=== PATIENT | female | born 1980 | race Hispanic/Latino ===

== ENCOUNTER 2019-06-20 09:14 | Day surgery (SDC) | payer OTHER ==
[~2019-06-20 09:14] MED LIST: CYCLOPHOSPHAMIDE IVPB SCH; DOXORUBICIN IVPB SCH; Palonosetron HCl 0.25 MG in Sodium Chloride 0.9% 50 ML IVPB SCH; SODIUM CHLORIDE 0.9% IVPB SCH
[2019-06-20] MEDS ORDERED: Sodium Chloride 0.9% 20 ML ONE ×2 (09:21→09:24)
[2019-06-20 10:14] VITALS: BP 156/74; TEMP 98.8
== END 2019-06-20 13:19 | disposition home or self-care (01) ==
LOC: ONC/OP 09:14
PROVIDERS: ATTEND Internal Medicine Hematology & Oncology
DX: Z51.11 Encounter for antineoplastic chemotherapy (principal); C50.411 Malignant neoplasm of upper-outer quadrant of right female breast
CPT/HCPCS: 96375; 96413; 96417; J1100; J1642; J2469; J3490; J7050; J9000; J9070

== ENCOUNTER 2019-06-21 13:45 | Day surgery (SDC) | payer OTHER ==
[~2019-06-21 13:45] MED LIST changes: -CYCLOPHOSPHAMIDE IVPB SCH; -DOXORUBICIN IVPB SCH; +PEGFILGRASTIM-JMDB 6 MG/0.6 ML SYRINGE SQ SCH; -Palonosetron HCl 0.25 MG in Sodium Chloride 0.9% 50 ML IVPB SCH; -SODIUM CHLORIDE 0.9% IVPB SCH
[2019-06-21 14:43] VITALS: BP 152/72; TEMP 98.5
== END 2019-06-21 14:43 | disposition home or self-care (01) ==
LOC: ONC/OP 13:45
PROVIDERS: ATTEND Internal Medicine Hematology & Oncology
DX: C50.411 Malignant neoplasm of upper-outer quadrant of right female breast (principal)
CPT/HCPCS: 96372; Q5108

== ENCOUNTER 2019-07-04 09:05 | Day surgery (SDC) | payer OTHER ==
[~2019-07-04 09:05] MED LIST changes: +CYCLOPHOSPHAMIDE IVPB SCH; +DOXORUBICIN IVPB SCH; -PEGFILGRASTIM-JMDB 6 MG/0.6 ML SYRINGE SQ SCH; +Palonosetron HCl 0.25 MG in Sodium Chloride 0.9% 50 ML IVPB SCH; +Pegfilgrastim Onpro 6 MG/0.6 ML SQ SCH; +SODIUM CHLORIDE 0.9% IVPB SCH
[2019-07-04] MEDS ORDERED: Sodium Chloride 0.9% 20 ML ONE (09:12)
[2019-07-04 12:43] VITALS: BP 147/72; TEMP 98.2
== END 2019-07-04 12:44 | disposition home or self-care (01) ==
LOC: ONC/OP 09:05
PROVIDERS: ATTEND Internal Medicine Hematology & Oncology
DX: Z51.11 Encounter for antineoplastic chemotherapy (principal); C50.411 Malignant neoplasm of upper-outer quadrant of right female breast
CPT/HCPCS: 96367; 96413; 96417; J1100; J1642; J2469; J3490; J7050; J9000; J9070

== ENCOUNTER 2019-07-05 08:26 | Day surgery (SDC) | payer OTHER ==
[2019-07-05] MEDS ORDERED: PEGFILGRASTIM-JMDB 6 MG/0.6 ML SYRINGE ONE (08:28)
[2019-07-05 08:43] VITALS: BP 143/67; TEMP 98.2
== END 2019-07-05 08:50 | disposition home or self-care (01) ==
LOC: ONC/OP 08:26
PROVIDERS: ATTEND Internal Medicine Hematology & Oncology
DX: C50.411 Malignant neoplasm of upper-outer quadrant of right female breast (principal)
CPT/HCPCS: 96372; Q5108

== ENCOUNTER 2019-07-18 10:10 | Day surgery (SDC) | payer OTHER ==
[~2019-07-18 10:10] MED LIST changes: -Pegfilgrastim Onpro 6 MG/0.6 ML SQ SCH
[2019-07-18] MEDS ORDERED: Sodium Chloride 0.9% 20 ML ONE (10:24)
[2019-07-18 10:33] VITALS: BP 133/69; TEMP 98.6
[2019-07-18] MEDS ORDERED: Acetaminophen 500 MG TAB PO SCH (15:45)
== END 2019-07-18 16:19 | disposition home or self-care (01) ==
LOC: ONC/OP 10:10
PROVIDERS: ATTEND Internal Medicine Hematology & Oncology
DX: Z51.11 Encounter for antineoplastic chemotherapy (principal); C50.411 Malignant neoplasm of upper-outer quadrant of right female breast
CPT/HCPCS: 96375; 96413; 96417; J1100; J1642; J2469; J3490; J7050; J9000; J9070

== ENCOUNTER 2019-07-19 08:17 | Day surgery (SDC) | payer OTHER ==
[~2019-07-19 08:17] MED LIST changes: -CYCLOPHOSPHAMIDE IVPB SCH; -DOXORUBICIN IVPB SCH; +PEGFILGRASTIM-JMDB 6 MG/0.6 ML SYRINGE SQ SCH; -Palonosetron HCl 0.25 MG in Sodium Chloride 0.9% 50 ML IVPB SCH; -SODIUM CHLORIDE 0.9% IVPB SCH
[2019-07-19 09:01] VITALS: BP 124/68; TEMP 98
== END 2019-07-19 09:43 | disposition home or self-care (01) ==
LOC: ONC/OP 08:17
PROVIDERS: ATTEND Internal Medicine Hematology & Oncology
DX: C50.411 Malignant neoplasm of upper-outer quadrant of right female breast (principal)
CPT/HCPCS: 96372; Q5108

== ENCOUNTER 2019-08-01 09:55 | Day surgery (SDC) | payer OTHER ==
[~2019-08-01 09:55] MED LIST changes: +CYCLOPHOSPHAMIDE IVPB SCH; +DOXORUBICIN IVPB SCH; -PEGFILGRASTIM-JMDB 6 MG/0.6 ML SYRINGE SQ SCH; +Palonosetron HCl 0.25 MG in Sodium Chloride 0.9% 50 ML IVPB SCH; +SODIUM CHLORIDE 0.9% IVPB SCH
[2019-08-01 10:04] VITALS: BP 145/70; TEMP 98.4
[2019-08-01] MEDS ORDERED: Sodium Chloride 0.9% 20 ML ONE (10:32)
== END 2019-08-01 12:19 | disposition home or self-care (01) ==
LOC: ONC/OP 09:55
PROVIDERS: ATTEND Internal Medicine Hematology & Oncology
DX: Z51.11 Encounter for antineoplastic chemotherapy (principal); C50.411 Malignant neoplasm of upper-outer quadrant of right female breast
CPT/HCPCS: 96375; 96413; 96417; J1100; J1642; J2469; J3490; J7050; J9000; J9070

== ENCOUNTER 2019-08-02 08:13 | Day surgery (SDC) | payer OTHER ==
[~2019-08-02 08:13] MED LIST changes: -CYCLOPHOSPHAMIDE IVPB SCH; -DOXORUBICIN IVPB SCH; +PEGFILGRASTIM-JMDB 6 MG/0.6 ML SYRINGE SQ SCH; -Palonosetron HCl 0.25 MG in Sodium Chloride 0.9% 50 ML IVPB SCH; -SODIUM CHLORIDE 0.9% IVPB SCH
[2019-08-02 08:38] VITALS: BP 149/63; TEMP 98.1
== END 2019-08-02 08:38 | disposition home or self-care (01) ==
LOC: ONC/OP 08:13
PROVIDERS: ATTEND Internal Medicine Hematology & Oncology
DX: C50.411 Malignant neoplasm of upper-outer quadrant of right female breast (principal)
CPT/HCPCS: 96372; Q5108

== ENCOUNTER 2019-08-15 09:13 | Day surgery (SDC) | payer OTHER ==
[~2019-08-15 09:13] MED LIST changes: +PACLITAXEL IVPB SCH; -PEGFILGRASTIM-JMDB 6 MG/0.6 ML SYRINGE SQ SCH; +SODIUM CHLORIDE 0.9% IVPB SCH
[2019-08-15] MEDS ORDERED: Sodium Chloride 0.9% 20 ML ONE (09:22)
[2019-08-15 11:22] VITALS: BP 140/72; TEMP 98.4
== END 2019-08-15 15:17 | disposition home or self-care (01) ==
LOC: ONC/OP 09:13
PROVIDERS: ATTEND Internal Medicine Hematology & Oncology
DX: Z51.11 Encounter for antineoplastic chemotherapy (principal); C50.411 Malignant neoplasm of upper-outer quadrant of right female breast
CPT/HCPCS: 96375; 96413; J1100; J1642; J7050; J9267

== ENCOUNTER 2019-08-22 10:59 | Day surgery (SDC) | payer OTHER ==
[2019-08-22] MEDS ORDERED: Sodium Chloride 0.9% 20 ML ONE (11:01)
[2019-08-22 11:29] VITALS: BP 120/66
== END 2019-08-22 12:58 | disposition home or self-care (01) ==
LOC: ONC/OP 10:59
PROVIDERS: ATTEND Internal Medicine Hematology & Oncology
DX: Z51.11 Encounter for antineoplastic chemotherapy (principal); C50.411 Malignant neoplasm of upper-outer quadrant of right female breast
CPT/HCPCS: 96375; 96413; J1100; J1642; J7050; J9267

== ENCOUNTER 2019-08-29 10:08 | Day surgery (SDC) | payer OTHER ==
[2019-08-29] MEDS ORDERED: Sodium Chloride 0.9% 0 ML ONE (10:09)
[2019-08-29] MEDS ORDERED: Sodium Chloride 0.9% 20 ML ONE (10:12)
== END 2019-08-29 12:07 | disposition home or self-care (01) ==
LOC: ONC/OP 10:08
PROVIDERS: ATTEND Internal Medicine Hematology & Oncology
DX: Z51.11 Encounter for antineoplastic chemotherapy (principal); C50.411 Malignant neoplasm of upper-outer quadrant of right female breast
CPT/HCPCS: 96375; 96413; J1100; J1642; J7050; J9267

== ENCOUNTER 2019-09-12 09:39 | Day surgery (SDC) | payer OTHER ==
[~2019-09-12 09:39] MED LIST changes: +Dexamethasone 4 mg/ml Vial SLOW IVP SCH; +Sodium Chloride 0.9% 20 ML ONE
[2019-09-12 10:16] VITALS: BP 116/68; TEMP 99
== END 2019-09-12 11:24 | disposition home or self-care (01) ==
LOC: ONC/OP 09:39
PROVIDERS: ATTEND Internal Medicine Hematology & Oncology
DX: Z51.11 Encounter for antineoplastic chemotherapy (principal); C50.411 Malignant neoplasm of upper-outer quadrant of right female breast
CPT/HCPCS: 96375; 96413; J1100; J1642; J7050; J9267

== ENCOUNTER 2019-09-19 10:46 | Day surgery (SDC) | payer OTHER ==
[~2019-09-19 10:46] MED LIST changes: -Sodium Chloride 0.9% 20 ML ONE
[2019-09-19 11:23] VITALS: BP 135/64; TEMP 98.6
== END 2019-09-19 12:53 | disposition home or self-care (01) ==
LOC: ONC/OP 10:46
PROVIDERS: ATTEND Internal Medicine Hematology & Oncology
DX: Z51.11 Encounter for antineoplastic chemotherapy (principal); C50.411 Malignant neoplasm of upper-outer quadrant of right female breast
CPT/HCPCS: 96375; 96413; J1100; J7050; J9267

== ENCOUNTER 2019-10-24 12:00 | Day surgery (SDC) | payer OTHER ==
[2019-10-24] MEDS ORDERED: Sodium Chloride 0.9% 20 ML ONE (12:18)
[2019-10-24 12:53] VITALS: BP 135/66; TEMP 98.7
== END 2019-10-24 14:34 | disposition home or self-care (01) ==
LOC: ONC/OP 12:00
PROVIDERS: ATTEND Internal Medicine Hematology & Oncology
DX: Z51.11 Encounter for antineoplastic chemotherapy (principal); C50.411 Malignant neoplasm of upper-outer quadrant of right female breast
CPT/HCPCS: 96375; 96413; J1100; J1642; J7050; J9267

== ENCOUNTER 2019-10-31 12:10 | Day surgery (SDC) | payer OTHER ==
[2019-10-31] MEDS ORDERED: Sodium Chloride 0.9% 20 ML ONE (12:19)
[2019-10-31 12:28] VITALS: BP 129/72; TEMP 98.7
== END 2019-10-31 13:37 | disposition home or self-care (01) ==
LOC: ONC/OP 12:10
PROVIDERS: ATTEND Internal Medicine Hematology & Oncology
DX: Z51.11 Encounter for antineoplastic chemotherapy (principal); C50.411 Malignant neoplasm of upper-outer quadrant of right female breast
CPT/HCPCS: 96375; 96413; J1100; J1642; J7050; J9267

== ENCOUNTER 2019-11-07 11:34 | Day surgery (SDC) | payer OTHER, SELFPAY ==
[~2019-11-07 11:34] MED LIST changes: +Dexamethasone Sod Phosphate 4 MG in Sodium Chloride 0.9% 50 ML IVPB SCH
[2019-11-07] MEDS ORDERED: Sodium Chloride 0.9% 20 ML ONE (11:47)
[2019-11-07 13:08] VITALS: BP 120/67; TEMP 98.5
== END 2019-11-07 13:23 | disposition home or self-care (01) ==
LOC: ONC/OP 11:34
PROVIDERS: ATTEND Internal Medicine Hematology & Oncology
DX: Z51.11 Encounter for antineoplastic chemotherapy (principal); C50.411 Malignant neoplasm of upper-outer quadrant of right female breast
CPT/HCPCS: 96375; 96413; J1100; J1642; J7050; J9267